=== PATIENT | female | born 1990 | race Caucasian/White ===

== ENCOUNTER 2016-10-17 12:42 | Outpatient (CLI) | payer OTHER, MEDICAID ==
[2016-10-17] VITALS (13 sets, daily range): BP systolic 114–143; BP diastolic 68–98
[~2016-10-17] VITALS: Ht 167.6 cm; Wt 114.0 kg
[~2016-10-17 12:42] MED LIST: PRENTAB55 PO
[2016-10-17 13:25] LABS: MEAN CORPUSCULAR HEMOGLOBIN 26.4 pg (27.0-33.0); MEAN CORPUSCULAR HGB CONC 32.7 g/dl (32.0-36.5); MEAN CORPUSCULAR VOLUME 80.7 fl (80.0-96.0); RED CELL DISTRIBUTION WIDTH 14.3 % (11.5-14.5); WHITE BLOOD COUNT 12.7 K/mm3 (4.0-10.0)
[2016-10-17] MEDS ORDERED: ACET50TA PO (13:48)
[2016-10-17] MEDS ORDERED: ANTA500C PO (13:48)
[2016-10-17 13:50] LABS: ALT/SGPT 15 U/L (12-78); AST/SGOT 9 U/L (15-37); BILIRUBIN,TOTAL 0.2 MG/DL (0.2-1.0); CREATININE FOR GFR 0.56 MG/DL (0.55-1.02); GLOMERULAR FILTRATION RATE > 60.0 (>60); URIC ACID 3.9 MG/DL (2.6-6.0)
== END 2016-10-17 17:15 | disposition home or self-care (01) ==
LOC: M LDO 12:42
PROVIDERS: ATTEND Obstetrics & Gynecology
DX: O26.893 Other specified pregnancy related conditions, third trimester (principal); R03.0 Elevated blood-pressure reading, without diagnosis of hypertension; O16.3 Unspecified maternal hypertension, third trimester; M79.661 Pain in right lower leg; M79.662 Pain in left lower leg; Z3A.38 38 weeks gestation of pregnancy

== ENCOUNTER 2016-10-19 12:16 | Inpatient (IN) | payer OTHER, MEDICAID ==
[~2016-10-19] VITALS: Ht 167.6 cm; Wt 108.0 kg
[2016-10-19] VITALS (23 sets, daily range): BP systolic 104–140; BP diastolic 56–86
[~2016-10-19 12:16] MED LIST changes: +ACET50TA PO; +ANTA500C PO
[2016-10-19] MEDS ORDERED: miSOPROStol 50 MCG 1/2 TAB (S0191) PO ONE (13:15)
[2016-10-19 13:52] LABS: MEAN CORPUSCULAR HEMOGLOBIN 26.8 pg (27.0-33.0); MEAN CORPUSCULAR VOLUME 81.2 fl (80.0-96.0); RED CELL DISTRIBUTION WIDTH 13.5 % (11.5-14.5); WHITE BLOOD COUNT 11.2 K/mm3 (4.0-10.0)
[2016-10-19 14:12] LABS: ALT/SGPT 14 U/L (12-78); AST/SGOT 11 U/L (15-37); BILIRUBIN,TOTAL 0.2 MG/DL (0.2-1.0); GLOMERULAR FILTRATION RATE > 60.0 (>60); URIC ACID 4.2 MG/DL (2.6-6.0)
[2016-10-19] MEDS ORDERED: LR 1,000 ML IV SCH (18:15)
[2016-10-19] MEDS ORDERED: OXYTOCIN DRIP 30 UNITS in APPROPRIATE DILUENT 1 EA IV SCH (18:15)
[2016-10-20] VITALS (36 sets, daily range): BP systolic 91–137; BP diastolic 50–93
[2016-10-20 01:59] LABS: MEAN CORPUSCULAR HGB CONC 33.9 g/dl (32.0-36.5); MEAN CORPUSCULAR VOLUME 79.7 fl (80.0-96.0); RED CELL DISTRIBUTION WIDTH 14.5 % (11.5-14.5); WHITE BLOOD COUNT 12.2 K/mm3 (4.0-10.0)
[2016-10-20] MEDS ORDERED: FENTANYL 2MCG/ML ROPIVACAINE 0.2% NACL 250 ML CADD As Ordered ONE (02:20)
[2016-10-20] MEDS ORDERED: diphenhydrAMINE INJ 50MG/ML VIAL (J1200) IV PRN (03:15)
[2016-10-20] MEDS ORDERED: EPIDURAL COMMENT XX SCH (03:15)
[2016-10-20] MEDS ORDERED: LACTATED RINGER'S 1000 ML IV PRN (03:15)
[2016-10-20] MEDS ORDERED: REFRIGERATOR IV KEYS XX PRN (03:15)
[2016-10-20] MEDS ORDERED: EPIDURAL/PCA KEYS XX PRN (03:15)
[2016-10-20] MEDS ORDERED: NALOXONE INJ 0.4 MG/1 ML VIAL (J2310) IV PRN (03:15)
[2016-10-20] MEDS ORDERED: FENTANYL/ROPIVACAINE/NACL CADD 250 ML EPIDURAL SCH (03:15)
[2016-10-20] MEDS ORDERED: ONDANSETRON 4MG/2ML VIAL (J2405) IV PRN (03:15)
[2016-10-20] MEDS ORDERED: BICITRA 30ML SOLN UDC PO PRN (03:30)
[2016-10-20] MEDS ORDERED: BICITRA 30ML SOLN UDC As Ordered ONE (03:33)
[2016-10-20] MEDS ORDERED: OXYTOCIN DRIP 30 UNITS in APPROPRIATE DILUENT 1 EA IV SCH (07:22)
[2016-10-20] MEDS ORDERED: RHOGAM 300 MCG (1500 IU) INJ (J2790) IM SCH (07:30)
[2016-10-20] MEDS ORDERED: MEASLES,MUMPS,RUBELLA VACCINE INJ (MMR-II) (90707) SC SCH (07:30)
[2016-10-20] MEDS ORDERED: DIBUCAINE 1% OINTMENT 30GM TOP PRN (07:30)
[2016-10-20] MEDS ORDERED: ANUSOL HC CREAM 30GM TOP PRN (07:30)
[2016-10-20] MEDS ORDERED: ACETAMINOPHEN 500 MG TAB PO PRN (07:30)
[2016-10-20] MEDS ORDERED: DOCUSATE SODIUM 100 MG CAP PO PRN (07:30)
[2016-10-20] MEDS ORDERED: METHYLERGONOVINE MALEATE 0.2 MG TAB PO PRN (07:30)
[2016-10-20] MEDS: PRENATAL VITAMIN TAB PO SCH (09:00)
[2016-10-20] MEDS: IBUPROFEN 800 MG TAB PO PRN ×2 (11:40→21:35)
[2016-10-21 06:33] VITALS: BP 116/67
[2016-10-21] MEDS: PRENATAL VITAMIN TAB PO SCH (07:45)
[2016-10-21] MEDS: IBUPROFEN 800 MG TAB PO PRN (13:35)
[2016-10-21 18:00] VITALS: BP 124/76
[2016-10-22 06:26] VITALS: BP 130/81
[2016-10-22] MEDS: PRENATAL VITAMIN TAB PO SCH (07:22)
[2016-10-22] MEDS ORDERED: IBUP-1114 PO (09:13)
== END 2016-10-22 14:00 | disposition home or self-care (01) | DRG 560 ==
LOC: M LDI 12:16 → M OBS 10-20 09:14
PROVIDERS: ADMIT Obstetrics & Gynecology; ATTEND Obstetrics & Gynecology
PROC: 3E0P7GC Introduction of Other Therapeutic Substance into Female Reproductive, Via Natural or Artificial Opening (ICD-10-PCS; 2016-10-19)
PROC: 3E033VJ Introduction of Other Hormone into Peripheral Vein, Percutaneous Approach (ICD-10-PCS; 2016-10-19)
PROC: 10E0XZZ Delivery of Products of Conception, External Approach (ICD-10-PCS; principal; 2016-10-20)
DX: O13.4 Gestational [pregnancy-induced] hypertension without significant proteinuria, complicating childbirth (principal); Z37.0 Single live birth; Z3A.38 38 weeks gestation of pregnancy

== ENCOUNTER → 2018-04-21 | Outpatient (REF) | payer OTHER | LOC: M LAB REF 04-23 11:21 | DX: N39.0 Urinary tract infection, site not specified (principal) | CPT/HCPCS: 87186 ==

== ENCOUNTER → 2018-06-06 | Outpatient (REF) | payer OTHER ==
[2018-06-06 14:04] LABS: AMYLASE 44 U/L (25-115)
[2018-06-06 14:04] LABS: LIPASE 78 U/L (73-393)
== END ==
LOC: M LAB REF 12:46
DX: R10.12 Left upper quadrant pain (principal)

== ENCOUNTER 2018-06-11 22:20 | Emergency (ER) | payer OTHER ==
[2018-06-11] MEDS: NS 1,000 ML IV (23:23)
[2018-06-11 23:35] LABS: BASO # 0.1 10^3/uL (0.0-0.2); BASO % 0.5 % (0.0-1.0); EOS # 0.2 10^3/uL (0.0-0.50); EOS % 1.7 % (0.0-3.0); HEMATOCRIT 40.9 % (36.0-47.0); HEMOGLOBIN 13.6 g/dl (12.0-15.5); IMMATURE GRANULOCYTE % 0.2 % (0-3.0); LYMPH # 2.7 10^3/uL (1.5-6.5); LYMPH % 25.9 % (24.0-44.0); MEAN CORPUSCULAR HEMOGLOBIN 29.1 pg (27.0-33.0); MEAN CORPUSCULAR HGB CONC 33.3 g/dl (32.0-36.5); MEAN CORPUSCULAR VOLUME 87.6 fl (80.0-96.0); MONO # 0.7 10^3/uL (0.0-0.8); NEUTROPHILS # 6.8 10^3/uL (1.8-7.7); NEUTROPHILS % 64.7 % (36.0-66.0); PLATELET COUNT, AUTOMATED 368 10^3/uL (150-450); RED BLOOD COUNT 4.67 10^6/uL (4.00-5.40); RED CELL DISTRIBUTION WIDTH 13.1 % (11.5-14.5); WHITE BLOOD COUNT 10.5 10^3/uL (4.0-10.0)
[2018-06-11 23:52] LABS: CONTROL LINE HCG INT CTR LINE PRESENT; HCG, SERUM QUALITATIVE NEGATIVE (NEGATIVE)
[2018-06-11 23:55] LABS: ALBUMIN 3.9 GM/DL (3.2-5.2); ALBUMIN/GLOBULIN RATIO 1.03 (1.00-1.93); ALKALINE PHOSPHATASE 49 U/L (45-117); ALT/SGPT 17 U/L (12-78); ANION GAP 12 MEQ/L (8-16); AST/SGOT 8 U/L (7-37); BILIRUBIN,DIRECT 0.1 MG/DL (0.0-0.2); BILIRUBIN,TOTAL 0.3 MG/DL (0.2-1.0); BLOOD UREA NITROGEN 10 MG/DL (7-18); CALCIUM LEVEL 9.5 MG/DL (8.5-10.1); CARBON DIOXIDE LEVEL 25 MEQ/L (21-32); CHLORIDE LEVEL 103 MEQ/L (98-107); CREATININE FOR GFR 0.68 MG/DL (0.55-1.30); GLOMERULAR FILTRATION RATE > 60.0 (>60); GLUCOSE, FASTING 96 MG/DL (70-100); LIPASE 81 U/L (73-393); POTASSIUM SERUM 3.4 MEQ/L (3.5-5.1); SODIUM LEVEL 140 MEQ/L (136-145); TOTAL PROTEIN 7.7 GM/DL (6.4-8.2)
[2018-06-12] MEDS ORDERED: GASTROGRAFIN SOLUTION 30ML (Q9963) As Ordered (00:29)
[2018-06-12] MEDS: POTASSIUM CHLORIDE 10 MEQ SR TABLET PO (00:32)
[2018-06-12] MEDS: GASTROGRAFIN SOLUTION 30ML PO ×2 (00:37→00:39)
[2018-06-12] MEDS ORDERED: ISOVUE-370 76% 100ML VIAL (Q9967) As Ordered (01:27)
[2018-06-12 01:38] LABS: KETONE, URINE AUTO RFX 1+ mg/dL (NEGATIVE); LEUKOCYTE ESTERASE UR AUTO RFX NEGATIVE (NEGATIVE); MUCUS, URINE RFX SMALL (NEGATIVE); NITRITE, URINE AUTO RFX NEGATIVE (NEGATIVE); RBC, URINE AUTO RFX 6 /HPF (0-3); SPECIFIC GRAVITY UR AUTO RFX 1.017 (1.002-1.035); SQUAM EPITHELIAL CELL UR AURFX 3 /HPF (0-6); WBC, URINE AUTO RFX 0 /HPF (0-3)
== END 2018-06-12 02:39 | disposition home or self-care (01) ==
LOC: M ED 22:20
DX: R10.9 Unspecified abdominal pain (principal); K80.20 Calculus of gallbladder without cholecystitis without obstruction; K76.0 Fatty (change of) liver, not elsewhere classified; F33.9 Major depressive disorder, recurrent, unspecified
CPT/HCPCS: Q9967

== ENCOUNTER → 2018-09-04 | Outpatient (REF) | payer OTHER ==
[2018-09-04 13:44] LABS: CONTROL LINE HPYORI INT CTR LINE PRESENT; H PYLORI QUALITATIVE IgG NEGATIVE (NEGATIVE)
== END ==
LOC: M LAB REF 13:03
DX: R10.9 Unspecified abdominal pain (principal)
CPT/HCPCS: 86677

== ENCOUNTER → 2018-10-29 | Outpatient (REF) | payer OTHER ==
[~2018-10-29] MED LIST changes: -ACET50TA PO; +CITA10TA5; +IBUP-1114 PO; +MAPA500T2 PO
== END ==
LOC: M LAB REF 12:29
PROVIDERS: ATTEND Physician Assistant Medical
DX: R10.9 Unspecified abdominal pain (principal)

== ENCOUNTER → 2018-10-31 | Outpatient (REF) | payer OTHER ==
[2018-10-31 16:55] LABS: PERCENT SATURATION 26.8 % (13.2-45.0)
[2018-11-03 00:06] LABS: ENDOMYSIAL ABY IgA Negative (Negative); TISSUE TRANSGLUTAMINASE IgA <2 U/mL (0-3)
== END ==
LOC: M LAB REF 16:23
PROVIDERS: ATTEND Internal Medicine
DX: K58.0 Irritable bowel syndrome with diarrhea (principal); D64.9 Anemia, unspecified

== ENCOUNTER → 2019-02-15 | Outpatient (CLI) | payer OTHER ==
[~2019-02-15] MED LIST changes: -ANTA500C PO; +CALC1CHW3 PO
--- NOTE | 2019-02-17 01:21 | REP ---
Clinical: Pelvic and perineal pain. Technique: AP and lateral (three total) views of the sacrum and coccyx. Findings: Bilateral sacroiliac joints are symmetric. The sacrum and coccyx are intact. There is no evidence for acute fracture or dislocation/subluxation. Surrounding soft tissues are grossly unremarkable. No subcutaneous emphysema or radiodense foreign body. Impression: Normal sacral coccygeal radiographs. Electronically Signed by Cm Sainz MD 02/17/2019 01:12 A
--- NOTE | 2019-02-17 01:23 | REP ---
Clinical: Nontraumatic hip pain. Technique: Frontal view of the pelvis with neutral and frog lateral views of the right and left hip. Findings: Osseous structures and joint spaces are intact and normal. Hip joints appear symmetric on frontal pelvic radiograph. No acute fracture dislocation. No evidence for healed injury. No significant degenerative or congenital abnormalities are appreciated. Surrounding soft tissues are unremarkable. Impression: Normal pelvis and bilateral hip series. Electronically Signed by Cm Sainz MD 02/17/2019 01:14 A
== END ==
LOC: M ADAMS 09:13
PROVIDERS: ATTEND Registered Nurse
DX: R10.2 Pelvic and perineal pain (principal)

== ENCOUNTER → 2019-05-08 | Outpatient (CLI) | payer OTHER ==
--- NOTE | 2019-05-08 16:10 | REP ---
Thoracic spine three views: There are no comparisons. There is mild scoliosis convex left in the upper thoracic spine and right in the mid thoracic spine. Mineralization is normal. Vertebral body heights, interspacing alignment are normal. The pedicles are unremarkable. Impression: Mild scoliosis, otherwise negative thoracic spine. Electronically Signed by Hal Arreola MD 05/08/2019 04:02 P
== END ==
LOC: M ADAMS 14:34
PROVIDERS: ATTEND Nurse Practitioner Family
DX: M41.84 Other forms of scoliosis, thoracic region (principal)

== ENCOUNTER → 2020-07-17 | Outpatient (REF) | payer OTHER | LOC: M LAB REF 12:00 | PROVIDERS: ATTEND Physician Assistant | DX: R30.0 Dysuria (principal) ==

== ENCOUNTER → 2021-06-28 | Outpatient (REF) | payer OTHER ==
[2021-06-28 14:53] LABS: FOLLICLE STIMULATING HORMONE 3.2 mIU/mL; FREE T4 0.92 NG/DL (0.76-1.46); LUTEINIZING HORMONE 12.8 mIU/mL; PROLACTIN 6.7 NG/ML; THYROID STIMULATING HORMONE 1.89 uIU/ML (0.358-3.740)
== END ==
LOC: M LABDRWAD 12:33
PROVIDERS: ATTEND Advanced Practice Midwife
DX: L68.0 Hirsutism (principal)

== ENCOUNTER → 2022-05-04 | Outpatient (CLI) | payer OTHER ==
[~2022-05-04] MED LIST changes: -CITA10TA5; +CITA10TA7
== END ==
LOC: M WUC 09:32
PROVIDERS: ATTEND Internal Medicine
DX: M54.9 Dorsalgia, unspecified (principal)

== ENCOUNTER 2022-06-25 12:23 | Emergency (ER) | payer OTHER ==
[~2022-06-25] VITALS: Ht 167.6 cm; Wt 86.5 kg
[2022-06-25] MEDS ORDERED: CETI10CH PO (12:36)
[2022-06-25] MEDS ORDERED: PHEN30CA21 (12:36)
[2022-06-25] MEDS ORDERED: KETOROLAC 30 MG/ML 1ML VIAL IM ONE (14:45)
[2022-06-25] MEDS ORDERED: ANUS2.5C2 TOP (15:26)
[2022-06-25] MEDS ORDERED: COLA100C5 PO (15:27)
[2022-06-25 15:38] VITALS: BP 134/90
== END 2022-06-25 15:39 | disposition home or self-care (01) ==
LOC: M ED 12:23
DX: K64.9 Unspecified hemorrhoids (principal); K59.00 Constipation, unspecified; F32.A Depression, unspecified; F17.200 Nicotine dependence, unspecified, uncomplicated; F12.10 Cannabis abuse, uncomplicated; F10.10 Alcohol abuse, uncomplicated; Z79.899 Other long term (current) drug therapy
CPT/HCPCS: 84702; 96372; 99283; J1885

== ENCOUNTER → 2023-12-19 | Outpatient (REF) | payer OTHER ==
[~2023-12-19] MED LIST changes: +ANUS2.5C2 TOP; +CETI10CH PO; +COLA100C5 PO; +PHEN30CA21
[2023-12-19 14:45] LABS: BASO % 0.8 % (0.0-1.0); EOS # 0.1 10^3/uL (0.0-0.5); HEMATOCRIT 36.7 % (36.0-47.0); HEMOGLOBIN 11.7 g/dl (12.0-15.5); LYMPH # 1.6 10^3/uL (1.5-5.0); LYMPH % 32.3 % (24.0-44.0); MEAN CORPUSCULAR HEMOGLOBIN 28.6 pg (27.0-33.0); MEAN CORPUSCULAR HGB CONC 31.9 g/dl (32.0-36.5); MEAN CORPUSCULAR VOLUME 89.7 fl (80.0-96.0); MONO # 0.4 10^3/uL (0.0-0.8); MONO % 7.1 % (2.0-8.0); NEUTROPHILS # 2.8 10^3/uL (1.5-8.5); NEUTROPHILS % 57.6 % (36.0-66.0); PLATELET COUNT, AUTOMATED 406 10^3/uL (150-450); RED BLOOD COUNT 4.09 10^6/uL (4.00-5.40); WHITE BLOOD COUNT 4.9 10^3/uL (4.0-10.0)
[2023-12-19 15:14] LABS: ALKALINE PHOSPHATASE 36 U/L (46-116); ALT/SGPT 14 U/L (7.0-40); AST/SGOT 9 U/L (<34); BILIRUBIN,TOTAL 0.5 MG/DL (0.3-1.2); BLOOD UREA NITROGEN 9 MG/DL (9-23); CALCIUM LEVEL 8.9 MG/DL (8.5-10.1); CARBON DIOXIDE LEVEL 28 MMOL/L (20-31); CHLORIDE LEVEL 106 MMOL/L (98-107); CHOLESTEROL LEVEL 194 MG/DL (<200); CHOLESTEROL RISK RATIO 2.72 (<5); CREATININE FOR GFR 0.69 MG/DL (0.55-1.30); GLOMERULAR FILTRATION RATE > 60.0 (>60); GLUCOSE, FASTING 92 MG/DL (60-100); HDL CHOLESTEROL 71.3 MG/DL (>40); LDL CHOLESTEROL 113.3 MG/DL (<100); NON-HDL-C 122.7 MG/DL; POTASSIUM SERUM 4.6 MMOL/L (3.5-5.1); SODIUM LEVEL 138 MMOL/L (136-145); TOTAL PROTEIN 6.7 G/DL (5.7-8.2); TRIGLYCERIDES LEVEL 47 MG/DL (<150)
[2023-12-19 15:15] LABS: FREE T4 1.04 NG/DL (0.89-1.76); THYROID STIMULATING HORMONE 1.013 uIU/ML (0.55-4.78); TOTAL 25(OH) VITAMIN D 24.6 NG/ML (20.0-100.0)
== END ==
LOC: M SFHCADAM 08:35
PROVIDERS: ATTEND Physician Assistant Medical
DX: Z13.220 Encounter for screening for lipoid disorders (principal); Z13.0 Encounter for screening for diseases of the blood and blood-forming organs and certain disorders involving the immune mechanism; Z13.1 Encounter for screening for diabetes mellitus

== ENCOUNTER → 2024-01-25 | Outpatient (CLI) | payer OTHER | LOC: M WHC 08:44 | PROVIDERS: ATTEND Physician Assistant Medical | DX: K80.20 Calculus of gallbladder without cholecystitis without obstruction (principal); K76.9 Liver disease, unspecified ==

== ENCOUNTER → 2024-01-25 | Outpatient (CLI) | payer OTHER | LOC: M PLAIMG 10:01 | PROVIDERS: ATTEND Physician Assistant Medical | DX: R07.81 Pleurodynia (principal); R10.84 Generalized abdominal pain ==

== ENCOUNTER → 2024-03-07 | Outpatient (CLI) | payer OTHER | LOC: M PLARAD 14:27 | PROVIDERS: ATTEND Physician Assistant Medical | DX: M54.6 Pain in thoracic spine (principal); R07.81 Pleurodynia; R10.84 Generalized abdominal pain ==

== ENCOUNTER → 2024-12-08 | Outpatient (CLI) | payer OTHER ==
[~2024-12-08] MED LIST changes: +ISOVUE-370 76% 100ML VIAL As Ordered ONE
== END ==
LOC: M RAD 11:58
PROVIDERS: ATTEND Physician Assistant
DX: R10.12 Left upper quadrant pain (principal); R11.2 Nausea with vomiting, unspecified; R10.84 Generalized abdominal pain
CPT/HCPCS: 74177; Q9967

== ENCOUNTER → 2024-12-08 | Outpatient (REF) | payer OTHER ==
[~2024-12-08] MED LIST changes: -ISOVUE-370 76% 100ML VIAL As Ordered ONE
[2024-12-08 13:09] LABS: BASO % 0.5 % (0.0-1.0); EOS # 0.1 10^3/uL (0.0-0.5); EOS % 1.3 % (0.0-3.0); HEMATOCRIT 37.9 % (36.0-47.0); HEMOGLOBIN 11.4 g/dl (12.0-15.5); LYMPH # 2.3 10^3/uL (1.5-5.0); LYMPH % 30.8 % (24.0-44.0); MEAN CORPUSCULAR HEMOGLOBIN 24.7 pg (27.0-33.0); MEAN CORPUSCULAR HGB CONC 30.1 g/dl (32.0-36.5); MONO # 0.5 10^3/uL (0.0-0.8); MONO % 7.1 % (2.0-8.0); NEUTROPHILS # 4.5 10^3/uL (1.5-8.5); NEUTROPHILS % 59.9 % (36.0-66.0); PLATELET COUNT, AUTOMATED 452 10^3/uL (150-450); RED BLOOD COUNT 4.62 10^6/uL (4.00-5.40); WHITE BLOOD COUNT 7.5 10^3/uL (4.0-10.0)
[2024-12-08 13:15] LABS: ERYTHROCYTE SEDIMENTATION RATE 28 mm/hr (0-20)
[2024-12-08 13:32] LABS: LIPASE 31 U/L (12-53)
[2024-12-08 13:35] LABS: ALBUMIN 3.7 G/DL (3.2-5.2); ALKALINE PHOSPHATASE 45 U/L (35-104); ALT/SGPT 12 U/L (7.0-40); AMYLASE 86 U/L (30-118); AST/SGOT 10 U/L (<34); BILIRUBIN,TOTAL 0.4 MG/DL (0.3-1.2); BLOOD UREA NITROGEN 9 MG/DL (9-23); C REACTIVE PROTEIN QUANTITATIV < 0.50 MG/DL (<1.0); CARBON DIOXIDE LEVEL 29 MMOL/L (20-31); CHLORIDE LEVEL 103 MMOL/L (98-107); CREATININE FOR GFR 0.63 MG/DL (0.55-1.30); GLOMERULAR FILTRATION RATE > 60.0 (>60); GLUCOSE, FASTING 90 MG/DL (60-100); POTASSIUM SERUM 4.3 MMOL/L (3.5-5.1); SODIUM LEVEL 142 MMOL/L (136-145); TOTAL PROTEIN 7.1 G/DL (5.7-8.2)
== END ==
LOC: M SFHCADAM 10:49
PROVIDERS: ATTEND Physician Assistant
DX: R10.12 Left upper quadrant pain (principal)

== ENCOUNTER → 2025-02-05 | Outpatient (REF) | payer OTHER ==
[2025-02-05 13:58] LABS: BASO # 0.1 10^3/uL (0.0-0.2); BASO % 1.5 % (0.0-1.0); EOS # 0.3 10^3/uL (0.0-0.5); EOS % 5.1 % (0.0-3.0); HEMATOCRIT 37.2 % (36.0-47.0); HEMOGLOBIN 11.1 g/dl (12.0-15.5); LYMPH # 2.3 10^3/uL (1.5-5.0); LYMPH % 37.2 % (24.0-44.0); MEAN CORPUSCULAR HEMOGLOBIN 24.7 pg (27.0-33.0); MEAN CORPUSCULAR HGB CONC 29.8 g/dl (32.0-36.5); MEAN CORPUSCULAR VOLUME 82.9 fl (80.0-96.0); MONO # 0.6 10^3/uL (0.0-0.8); NEUTROPHILS # 2.9 10^3/uL (1.5-8.5); PLATELET COUNT, AUTOMATED 528 10^3/uL (150-450); RED BLOOD COUNT 4.49 10^6/uL (4.00-5.40); WHITE BLOOD COUNT 6.1 10^3/uL (4.0-10.0)
[2025-02-05 14:05] LABS: FERRITIN < 0.9 NG/ML (7.3-270.7)
[2025-02-05 14:09] LABS: BLOOD UREA NITROGEN 10 MG/DL (9-23); CALCIUM LEVEL 9.8 MG/DL (8.5-10.1); CARBON DIOXIDE LEVEL 28 MMOL/L (20-31); CHLORIDE LEVEL 106 MMOL/L (98-107); CREATININE FOR GFR 0.69 MG/DL (0.55-1.30); GLOMERULAR FILTRATION RATE > 90.0 (>60); GLUCOSE, FASTING 92 MG/DL (60-100); IRON (FE) 14 UG/DL (50-170); PERCENT SATURATION 3.8 % (13.2-45.0); POTASSIUM SERUM 4.7 MMOL/L (3.5-5.1); SODIUM LEVEL 140 MMOL/L (136-145); TOTAL IRON BINDING CAPACITY 373 UG/DL (250-425)
[2025-02-05 14:11] LABS: VITAMIN B12 LEVEL 620 PG/ML (211-911)
[2025-02-05 14:12] LABS: FOLATE 13.2 NG/ML (>5.4)
== END ==
LOC: M SFHCADAM 09:00
PROVIDERS: ATTEND Physician Assistant
DX: D64.9 Anemia, unspecified (principal)

== ENCOUNTER → 2025-05-08 | Outpatient (CLI) | payer OTHER | LOC: M RAD 08:40 | PROVIDERS: ATTEND Physician Assistant Medical | DX: R93.2 Abnormal findings on diagnostic imaging of liver and biliary tract (principal) ==

== ENCOUNTER 2025-08-25 07:14 | Emergency (ER) | payer OTHER ==
[~2025-08-25] VITALS: Ht 167.6 cm; Wt 81.6 kg
[2025-08-25 07:16] VITALS: BP 146/86; TEMP 97.5; O2SAT 100
[2025-08-25] MEDS ORDERED: BEAN300T PO (07:27)
[2025-08-25] MEDS ORDERED: FAMO20TA PO (07:27)
[2025-08-25] MEDS ORDERED: IBUP200T46 PO (07:27)
[2025-08-25] MEDS ORDERED: SIME125C4 PO (07:27)
[2025-08-25] MEDS ORDERED: FERR325T19 PO (07:27)
== END 2025-08-25 09:06 | disposition left against medical advice (07) ==
LOC: M ED 07:14
DX: Z53.21 Procedure and treatment not carried out due to patient leaving prior to being seen by health care provider (principal)

== ENCOUNTER → 2025-08-27 | Outpatient (REF) | payer OTHER ==
[~2025-08-27] MED LIST changes: +BEAN300T PO; +FAMO20TA PO; +FERR325T19 PO; +IBUP200T46 PO; +SIME125C4 PO
[2025-08-27 17:28] LABS: PLATELET COUNT, AUTOMATED 430 10^3/uL (150-450)
[2025-08-27 17:34] LABS: IRON (FE) 71.0 UG/DL (50-170)
[2025-08-27 17:36] LABS: PERCENT SATURATION 21.3 % (13.2-45.0)
[2025-09-05 14:47] LABS: IMMUNOGLOBULIN A CELIAC 201 mg/dL (47-310); t-TRANSGLUTAMINASE(tTG) IgA < 1.0 U/mL (<15.0); t-TRANSGLUTAMINASE(tTG) IgG < 1.0 U/mL (<15.0)
== END ==
LOC: M SFHCADAM 13:40
PROVIDERS: ATTEND Physician Assistant Medical
DX: D50.9 Iron deficiency anemia, unspecified (principal); R10.84 Generalized abdominal pain; R14.0 Abdominal distension (gaseous)